=== PATIENT | female | born 2005 | race Caucasian/White ===

== ENCOUNTER 2024-07-10 21:30 | Emergency (ER) | payer SELFPAY ==
[~2024-07-10] VITALS: Ht 167.6 cm; Wt 77.3 kg
[2024-07-10 22:07] VITALS: BP 129/90; PULSE 86; RESP 18; TEMP 98; O2SAT 100
[2024-07-11] MEDS: METHOCARBAMOL 500 MG TABLET PO ONE (00:57)
[2024-07-11] MEDS: IBUPROFEN 400 MG TABLET PO ONE (00:57)
[2024-07-11] MEDS: ACETAMINOPHEN 500 MG TABLET PO ONE (00:58)
[2024-07-11] MEDS ORDERED: METH-812 PO (02:00)
== END 2024-07-11 02:12 | disposition home or self-care (01) ==
LOC: EMS 21:32
DX: M25.561 Pain in right knee (principal); F12.90 Cannabis use, unspecified, uncomplicated; V43.52XA Car driver injured in collision with other type car in traffic accident, initial encounter; Y93.89 Activity, other specified; Y92.410 Unspecified street and highway as the place of occurrence of the external cause; Y99.8 Other external cause status
CPT/HCPCS: 99284; Z7502; Z7610